=== PATIENT | male | born 1990 | race Asian ===

== ENCOUNTER 2019-03-15 20:36 | Emergency (ER) | payer OTHER ==
[~2019-03-15] VITALS: Ht 170.2 cm; Wt 72.7 kg
[2019-03-15 20:56] VITALS: BP 137/93; TEMP 97.3
[2019-03-15] MEDS ORDERED: CEPHALEXIN500 M1 PO (22:37)
[2019-03-15 22:47] VITALS: PULSE 82
== END 2019-03-15 22:47 | disposition home or self-care (01) ==
LOC: COL.ER 20:36
DX: S61.214A Laceration without foreign body of right ring finger without damage to nail, initial encounter (principal); S61.411A Laceration without foreign body of right hand, initial encounter; Z23 Encounter for immunization; W26.8XXA Contact with other sharp object(s), not elsewhere classified, initial encounter